=== PATIENT | female | born 1960 | race Caucasian/White ===

== ENCOUNTER 2017-06-01 13:44 | Emergency (ER) | payer OTHER ==
[~2017-06-01] VITALS: Ht 157.5 cm; Wt 60.0 kg
[2017-06-01 13:51] VITALS: BP 161/87; PULSE 69; RESP 16; O2SAT 96
--- NOTE | 2017-06-01 14:15 | ED.REPORT ---
HPI-Neurologic Deficit Date of Service Jun 01, 2017 ED Provider: Dr. Gilbert The pt is a 57 y/o female with a hx of HTN and high cholesterol who presents to the ED via EMS complaining of numbness on the left side of the face, onset 2 hours ago. Associated sx include numbness around the lips and in the left arm. She also reports palpitations, chills, diaphoresis and diarrhea. The pt was recently put on antibiotics after a cat bite on her right calf. The pt is concerned her sx may be associated to recent stress. Nursing Notes Stated Complaint: SANDRO LIPS Chief Complaint: General Complaint Nursing Notes Reviewed: Yes Allergies: Coded Allergies: meperidine (Verified Allergy, Unknown, Rash, ZAMORA, Vomiting, 06/01/17) General Time Seen by Provider: 14:16 Chief Complaint Other (facial numbness) Hx Obtained From: Patient Arrived By: Ambulance Sudden in Onset?: Yes Onset Occurred: 1 - 4 hours ago Symptom Duration: Since onset Severity: Current: No pain currently Severity: Maximum: No pain Recent Healthcare: No recent doctor visit Risk Factors NIH Stroke Scale Level of Consciousness: Alert and responsive (0) Ask Month & Age: Both questions right (0) 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 (0) Visual Beltre: No visual loss (0) Facial Palsy: Normal symmetry (0) Right Arm Motor Drift (10s): No drift 10 sec (0) Left Arm Motor Drift (10s): No drift 10 sec (0) Right Leg Motor Drift (5s): No drift 5 sec (0) Left Leg Motor Drift (5s): No drift 5 sec (0) Limb Ataxia FNF/Heel-Talley: No ataxia (0) Sensation (Arms/Legs/Face): No sensory loss (0) Language Aphasia: No aphasia, normal (0) Dysarthria: No dysarthria, normal (0) Extinction/Inattention: No exctinct/inattent (0) NIHSS Score: 0 Time NIHSS Performed: 02:20 Date NIHSS Performed: Jun 01, 2017 Past Medical History Past Medical History HTN high cholesterol GERD Past Surgical History Bladder surgery Reports: Cholecystectomy, Hysterectomy Smoking History Unknown if Ever Smoker Social History Other Social History: Good social support Ambulatory Status Independent Review of Systems Reports: Constitutional: Reports: Chills Cardiovascular: Reports: Palpitations GI: Reports: Diarrhea Skin: Reports Diaphoresis Neurologic: Reports: Numbness (left side of the face, around the lips and in left arm) Complete sys rev & neg: except as marked. Physical Exam Initial Vital Signs Vital Signs (First) Date Time Temp Pulse Resp B/P Pulse Ox O2 Delivery O2 Flow Rate FiO2 06/01/17 13:51 36.8 69 16 161/87 96 Room Air Initial VS: Reviewed Neck: Supple, Non-tender, Full range of motion Abdomen / GI: Soft, Non-tender, No guarding, No rebound, No distention Extremities: Vascular intact, Neuro intact, No swelling, No tenderness Skin: Warm, Dry, No cyanosis General/Constitutional: Awake, Alert, No acute distress, Well appearing, Cooperative Head / Eyes: Atraumatic, Normocephalic, PERRL Respiratory / Chest: Atraumatic, Breath sounds NL, Breath sounds = bilat, No respiratory distress, No rales, No rhonchi, No wheezing Cardiovascular: Heart rate NL, Regular rhythm, Heart sounds NL, No gallop, No murmurs, No rubs Neurologic: Oriented X3, Speech NL, No motor deficits, No sensory deficits, CN II - XII intact No reproducible numbness or paresthesia. Interpretation & Diagnostics Lab Results Interpretation Result Diagram: 06/01/17 1410 06/01/17 1410 Test 06/01/17 14:10 White Blood Count 9.3th/mm3 (3.8-10.1) Red Blood Count 4.68mil/mm3 (3.90-5.20) Hemoglobin 14.3g/dL (12.0-15.6) Hematocrit 42.5% (35.0-46.0) Mean Corpuscular Volume 90.8fL (81-100) Mean Corpuscular Hemoglobin 30.6pg (27.0-35.0) Mean Corpuscular Hemoglobin Concent 33.6% (32.0-37.0) Red Cell Distribution Width 13.5% (12.3-15.4) Platelet Count 220bil/L (150-400) Neutrophils (%) (Auto) 61.8% (40-74) Lymphocytes (%) (Auto) 30.3% (14-46) Monocytes (%) (Auto) 7.4% (4-12) Eosinophils (%) (Auto) 0.3% (0-5) Basophils (%) (Auto) 0.2% (0-3) Sodium Level 143mEq/L (134-144) Potassium Level 3.7mEq/L (3.5-5.2) Chloride Level 104mEq/L (97-108) Carbon Dioxide Level 18mmol/L (18-29) Blood Urea Nitrogen 9mg/dL (6-24) Creatinine 0.69mg/dL (0.57-1.00) Estimat Glomerular Filtration Rate 126mL/min (>59) Glucose Level 123mg/dL (60-99) Calcium Level 10.2mg/dL (8.5-10.1) Magnesium Level 2.0mg/dL (1.6-2.6) Total Bilirubin 0.2mg/dL (0.0-1.2) Aspartate Amino Transf (AST/SGOT) 46U/L (0-50) Alanine Aminotransferase (ALT/SGPT) 73U/L (0-32) Alkaline Phosphatase 90U/L (25-150) Total Protein 7.8g/dL (6.4-8.4) Albumin 4.6g/dL (3.4-5.0) ECG Interpretation ECG Interpretation: Normal sinus rhythm. Rate 61. Probable left atrial enlargement. Time: 14:28 CT Head Interpretation IMPRESSION: Negative head CT. No acute intracranial hemorrhage. Dictated by: Lorne Ng M.D. on 06/01/2017 at 13:59 Approved by: Lorne Ng M.D. on 06/01/2017 at 14:00 Study: Head CT no contrast Interpretation / Wet Read by: Interpret - Radiologist Re-Eval/Medical Decision Med Decision/Clinical Course Patient symptoms do not seem consistent with stroke, her NIH stroke scale is 0, she has a nonreproducible paresthesia that does cross the midline on her face. And her symptoms have resolved. Overall it seems very unlikely that this was a TIA. She did also have associated palpitations, recommend close outpatient follow-up for both of these. Recommend daily aspirin. Return and follow-up precautions given Source of Hx: Old records Re-Evaluation/Progress : Time of Eval: 15:17 Re-Evaluation/Progress Note: Rechecked pt. Discussed lab results, imaging results, diagnosis and plan to discharge. Pt understands and agrees with the plan. F/U instruction and RTER warning given. All questions addressed. Counseled Regarding: Diagnosis, Lab results, Need for follow-up, When/why to return to ED Discharge & Departure Impression: Primary Impression: Facial paresthesia Additional Impressions: Palpitations Arm paresthesia, left Disposition: Home Discharge Condition All VS Reviewed: Yes Condition: Stable Additional Instructions: Workup in the ER is reassuring. Begin taking Aspirin daily. Call your doctor for further diagnostic testing which may include Holter monitor, echocardiogram , or MRI of the brain. Return to ER for persistent palpitations, episodes of passing out, neurologic deficits concerning for stroke, or other concerns. Referrals: [facility] Scribe Attestation Portions of this note were transcribed by Amber Phelps. I,, personally performed the history,physical exam and medical decision-making;I reviewed and confirmed the accuracy of the information in the transcribed note. Signed by Brenda Macias. 06/01/17 Romeo Gilbert DO Jun 01, 2017 14:14 Amber Phelps Jun 01, 2017 14:23
[2017-06-01 14:22] LABS: BASOPHILS % (AUTO) 0.2 % (0-3); EOSINOPHILS % (AUTO) 0.3 % (0-5); MONOCYTES % (AUTO) 7.4 % (4-12); Mean Corpuscular Hemoglobin 30.6 pg (27.0-35.0); Mean Corpuscular Volume 90.8 fL (81-100); NEUTROPHILS % (AUTO) 61.8 % (40-74); Platelet Count 220 bil/L (150-400)
--- NOTE | 2017-06-01 15:02 | DRSVH ---
PROCEDURE: CT BRAIN WITHOUT CONTRAST ([id number]) INDICATIONS: Left sided numbness TECHNIQUE: Noncontrast 4.5 mm thick angled axial sections acquired from the foramen magnum to the vertex, with c oronal reformats. COMPARISON: None. FINDINGS: Image quality: Excellent. CSF spaces: Basal cisterns are patent. No extra-axial fluid collections. Ventricles are normal in size and shape. Brain: No midline shift. No intracranial masses or hemorrhage. Anna-white matter interface is norm al. Skull and face: Calvarium and visualized facial bones are intact, without suspicious lesions. Sinuses: Visualized sinuses and mastoids are clear. IMPRESSION: Negative head CT. No acute intracranial hemorrhage. Dictated by: Lorne Ng M.D. on 06/01/2017 at 13:59 Approved by: Lorne Ng M.D. on 06/01/2017 at 14:00
[2017-06-01 15:42] VITALS: BP 150/80; PULSE 61; RESP 16; O2SAT 97
== END 2017-06-01 15:49 | disposition home or self-care (01) ==
LOC: SED 13:44
DX: R20.8 Other disturbances of skin sensation (principal); R00.2 Palpitations; I10 Essential (primary) hypertension; K21.9 Gastro-esophageal reflux disease without esophagitis; Z90.710 Acquired absence of both cervix and uterus; Z88.5 Allergy status to narcotic agent